=== PATIENT | male | born 1970 | race Caucasian/White ===

== ENCOUNTER 2023-04-15 12:27 | Emergency (ER) | payer MEDICAID ==
[~2023-04-15] VITALS: Ht 172.7 cm; Wt 79.0 kg
[2023-04-15 12:35] VITALS: BP 168/99; PULSE 102; RESP 18; TEMP 98.4; O2SAT 99
[2023-04-15] MEDS ORDERED: IBUPROFEN 600MG TABLET PO STA (12:43)
[2023-04-15] MEDS ORDERED: AMLO2.5T2 MT (13:31)
== END 2023-04-15 17:50 | disposition home or self-care (01) ==
LOC: ER 12:56
DX: I16.0 Hypertensive urgency (principal); I49.9 Cardiac arrhythmia, unspecified
CPT/HCPCS: 71045; 93005; 99283